=== PATIENT | male | born 1980 | race Caucasian/White ===

== ENCOUNTER 2022-05-30 09:41 | Emergency (ER) | payer OTHER, SELFPAY ==
--- NOTE | ~2022-05-30 | XR_ITS ---
EXAMINATION: XR CHEST CLINICAL INFORMATION: Chest pain COMPARISON: None TECHNIQUE: 2 views of the chest were obtained. FINDINGS: No significant abnormality is noted involving the heart, lungs, mediastinum, bony thorax or soft tissues. XR/XR chest 2V IMPRESSION: Unremarkable chest examination.
[2022-05-30 09:44] VITALS: BP 141/72; PULSE 82; RESP 16; TEMP 36.7; O2SAT 99; BMI 28.5
--- NOTE | 2022-05-30 09:45 | ECG_ITS ---
Test Reason : CHEST PAIN Blood Pressure : / mmHG Vent. Rate : 078 BPM Atrial Rate : 078 BPM P-R Int : 164 ms QRS Dur : 088 ms QT Int : 366 ms P-R-T Axes : 057 039 041 degrees QTc Int : 417 ms Normal sinus rhythm with sinus arrhythmia Nonspecific ST abnormality Inferior leads Borderline ECG No previous ECGs available Referred By: Generic ED Physician Electronically Signed By:RAFY DIAZ MD
--- NOTE | 2022-05-30 09:52 | ED_ITS ---
HPI - Chest Pain General Chief Complaint: Chest Pain Stated Complaint: r sided chest pain and r shoulder blade Time Seen by Provider: 05/30/22 09:52 Source: patient Mode of arrival: ambulatory Limitations: no limitations History of Present Illness HPI narrative: Pt is a 41 yo assigned male at w/ no significant PMHx presenting w/ a 3 wk hx of intermittent chest pain and SOB. He states that his symptoms starting spontaneously w/o known inciting event. He describes the pain as dull that comes on w/o any specific triggers. He states that the pain is located in the epigastric region, stating that he's concerned that he may have an ulcer. He describes the pain as dull that comes on w/o any specific triggers. He denies any hx of similar symptoms in the past. He denies any recent fevers, cough, sore throat, N/V/D, headache, lightheadedness, or syncopal episodes. Onset (ago): week(s) (3) Timing of current episode: episodic Prior episodes: No Onset: awoke with symptoms Pain location: epigastric Pain radiation: none Severity: mild Pain scale (0-10): 2 Quality: dull Relieving factors: nothing Exacerbating factors: nothing Treatment prior to arrival: none Risk Factors Coronary artery disease risk factors: none Related Data Allergies Allergy/AdvReac Type Severity Reaction Status Date / Time No Known Allergies Allergy Verified 05/30/22 09:58 Review of Systems Constitutional: Constitutional: Reports no additional constitutional complaints, Denies chills, Denies fever(s) and Denies night sweats Eyes: Eyes: Reports no additional eye complaints and Denies change in vision ENT: Denies dizziness Cardiovascular: Cardiovascular: Reports no additional cardiovascular complaints, Denies chest pain, Denies lightheadedness, Denies Loss of Consciousness and Denies dyspnea Respiratory: Respiratory: Reports no additional respiratory complaints and Denies dyspnea Gastrointestinal: Gastrointestinal: Reports no additional gastrointestinal complaints, Reports abdominal pain (epigastric pain) and Denies change in stool character Genitourinary: Genitourinary: Reports no additional male genitourinary complai nts Musculoskeletal: Musculoskeletal: Reports no additional musculoskeletal complaints Neurologic: Denies dizziness Psychiatric: Psychiatric: Reports no additional psychiatric complaints Endocrine: Endocrine: Reports no additional endocrine complaints Hematologic/Lymphatic: Hematologic/Lymphatic: Reports no additional hematologic/lymphatic complaints Allergic/Immunologic: Allergic/Immunologic: Reports no additional allergic/immunologic complaints and Denies GI upset with certain foods PMFSH Past Medical History Attestation statement: The following information was validated with the patient. Source: old records reviewed Social History Social History Advance Directives: No Advance Directives Information Provided: Yes Physical Exam Vital Signs: Vital Signs: Last Vital Signs Temp 99.4 F 05/30/22 11:44 Pulse 69 05/30/22 11:44 Resp 14 05/30/22 11:44 BP 121/80 05/30/22 11:44 Pulse Ox 100 05/30/22 11:44 O2 Del Method 05/30/22 11:44 BMI result Body Mass Index 28.5 Const: General: cooperative, healthy appearing, comfortable and no acute distress Nutritional Appearance: well nourished and overweight Orientation/consciousness: patient oriented x3 Limitations: no limitations HEENT: Head: Yes normal to inspection and Yes atraumatic Ears: hearing grossly normal bilaterally General nose exam: Normal external nose present, no nasal discharge noted and no epistaxis Face and sinus: Yes normal facial exam, No abrasion and No laceration Mouth: Normal oral and palatal mucosa present, no drooling and no muffled voice Eyes: General: appearance normal, both eyes and all related structures Periorbital: periorbital findings normal Eyelids: Yes eyelids normal Conjunctivae: conjunctivae normal Pupils: Equal, round and reactive pupils present EOM: EOMs intact bilaterally Neck: Neck: Yes normal visual inspection Lymphatic: no lymphadenopathy noted Chest: Chest palpation & inspection: normal inspection of the chest Resp: Effort & Inspection: normal respiratory effort, able to speak in complete sentences, no cough, no respiratory distress and not tachypneic Auscultation: clear to auscultation bilaterally, no crackles, no rales, no rhonchi and no wheezes Cardio: Jugular venous distension: no JVD Rate: regular rate Rhythm: regular rhythm Heart sounds: S1 normal heart sound present and S2 normal heart sound present Peripheral pulses: Peripheral pulses 2+ throughout GI: Inspection: Yes normal to inspection Palpation (GI): Soft to palpation, not firm, nontender, no guarding, not rigid, no masses, No Ascites present and No Rebound tenderness present Auscultation: normal bowel sounds Skin: General skin exam: no rashes or lesions noted Neuro: General: patient oriented x3 Cranial nerves: Yes Equal, round and reactive pupils present Cognition (Neuro): normal cognition Motor exam (neuro): 5/5 motor strength present throughout Sensory Exam: Normal double simultaneous stimulation for sensation Coordination: [id number] test normal Extrem: General: Yes normal to inspection, Yes full ROM and Yes capillary refill normal Psych: Appearance: grossly normal Mental Status: mental status grossly normal Affect: normal affect Attitude: cooperative Thought process: Normal thought process present Thought content: Normal thought content present Insight: Good insight present (Psych) Medications Administered Discontinued Medications Generic Name Dose Route Start Last Admin Trade Name Freq PRN Reason Stop Dose Admin Sodium Chloride 1,000 mls @ 999 mls/hr 05/30/22 11:30 05/30/22 11:53 Ns IV 05/30/22 12:30 999 mls/hr .Q1H1M ROBB Administration MDM - Chest Pain MDM Narrative Medical decision making narrative: Patient is a 41 year old assigned male at with no reported medical history presenting to the emergency department today with epigastric pain. Patient's physical exam was unremarkable. Patient's blood work showed a very slight lipase elevation but was otherwise unremarkable. Patient's EKG was unremarkable. Patient's chest x-ray showed no acute process. I explained my physical exam findings as well as all test results to the patient. I answered all questions asked by the patient. Patient received IV fluids which he stated helped his symptoms significantly. I stressed the importance of the patient taking his medication as prescribed. I stressed the importance of the patient following up with his primary care provider. I stressed the importance of the patient returning to the emergency department immediately if his symptoms were to worsen or if he were to develop any dizziness, shortness of breath, difficulty breathing, chest pain, blurry vision, loss of vision, nausea, vomiting, abdominal pain, fever, chills, back pain, or any other complaints. Patient verbalized agreement and understanding with this treatment plan and discharge. Medical Records Data Attestation: I reviewed the patient's medical records. Lab Data Attestation: I reviewed the patient's lab results. Result diagrams: 05/30/22 10:59 05/30/22 10:59 Labs: Lab Results 05/30/22 05/30/22 05/30/22 Range/Units 10:59 10:59 10:59 WBC 3.1 L (4.8-10.8) X10*3/uL RBC 4.81 (4.60-5.80) X10*6/uL Hgb 15.3 (14.0-18.0) g/dl Hct 44.0 (42.0-52.0) % MCV 91.5 (80.0-98.0) fL MCH 31.8 (27.0-33.0) pg MCHC 34.8 (31.0-36.0) g/dl RDW 11.5 (11.0-16.0) % Plt Count 235 (160-400) X10*3/uL MPV 9.6 (9.4-12.4) fL Immature Gran % (Auto) 0.3 (0.0-0.4) % Neut % (Auto) 63.3 (45-73) % Lymph % (Auto) 24.9 (20-40) % [place] % (Auto) 9.8 (2-11) % Eos % (Auto) 1.0 (0-4) % Baso % (Auto) 0.7 (0-2) % Lymph # (Auto) 0.8 L (1.2-4.9) X10*3/uL [place] # (Auto) 0.3 (0.1-1.2) X10*3/uL Eos # (Auto) 0.0 (0.0-0.4) X10*3/uL Baso # (Auto) 0.0 (0.0-0.2) X10*3/uL Abs Immat Gran (auto) 0.01 (0.00-0.03) X10*3/uL Absolute Neuts (auto) 1.9 L (2.0-8.3) x10*3/uL Absolute Nucleated RBC 0.000 (0.0-0.012) X10*3/uL Nucleated RBC % (auto) 0.0 (0.0-0.2) /100WBC D-Dimer High Sensitivty < 150 NG/ML Sodium 138 (135-145) mmol/L Potassium 4.2 (3.3-5.1) mmol/L Chloride 102 (96-108) mmol/L Carbon Dioxide 28 (22-29) mmol/L Anion Gap 12 (12-20) BUN 11 (9-16) mg/dL Creatinine 0.98 (0.5-1.4) mg/dL Estim Creat Clear Calc 121.1 Estimated GFR > 60 Random Glucose 102 (60-115) mg/dL Calcium 9.3 (8.4-10.2) mg/dL Magnesium 2.2 (1.6-2.6) mg/dL Total Bilirubin 0.5 (0.0-1.0) mg/dL AST 22 (5-37) U/L ALT 47 H (0-40) U/L Alkaline Phosphatase 55 (39-117) U/L Troponin I High Sens (<3.5-35.0) ng/L B-Natriuretic Peptide (<100) pg/mL Total Protein 7.0 (6.5-8.0) g/dL Albumin 4.4 (3.5-5.0) g/dL Lipase 89 H (8-78) U/L Influenza Type A (PCR) (Negative) Influenza Type B (PCR) (Negative) RSV RNA Qual (PCR) (Negative) SARS-CoV-2 RNA (RT-PCR) (Negative) 05/30/22 05/30/22 05/30/22 Range/Units 10:59 10:59 11:48 WBC (4.8-10.8) X10*3/uL RBC (4.60-5.80) X10*6/uL Hgb (14.0-18.0) g/dl Hct (42.0-52.0) % MCV (80.0-98.0) fL MCH (27.0-33.0) pg MCHC (31.0-36.0) g/dl RDW (11.0-16.0) % Plt Count (160-400) X10*3/uL MPV (9.4-12.4) fL Immature Gran % (Auto) (0.0-0.4) % Neut % (Auto) (45-73) % Lymph % (Auto) (20-40) % [place] % (Auto) (2-11) % Eos % (Auto) (0-4) % Baso % (Auto) (0-2) % Lymph # (Auto) (1.2-4.9) X10*3/uL [place] # (Auto) (0.1-1.2) X10*3/uL Eos # (Auto) (0.0-0.4) X10*3/uL Baso # (Auto) (0.0-0.2) X10*3/uL Abs Immat Gran (auto) (0.00-0.03) X10*3/uL Absolute Neuts (auto) (2.0-8.3) x10*3/uL Absolute Nucleated RBC (0.0-0.012) X10*3/uL Nucleated RBC % (auto) (0.0-0.2) /100WBC D-Dimer High Sensitivty NG/ML Sodium (135-145) mmol/L Potassium (3.3-5.1) mmol/L Chloride (96-108) mmol/L Carbon Dioxide (22-29) mmol/L Anion Gap (12-20) BUN (9-16) mg/dL Creatinine (0.5-1.4) mg/dL Estim Creat Clear Calc Estimated GFR Random Glucose (60-115) mg/dL Calcium (8.4-10.2) mg/dL Magnesium (1.6-2.6) mg/dL Total Bilirubin (0.0-1.0) mg/dL AST (5-37) U/L ALT (0-40) U/L Alkaline Phosphatase (39-117) U/L Troponin I High Sens < 3.5 (<3.5-35.0) ng/L B-Natriuretic Peptide 41 (<100) pg/mL Total Protein (6.5-8.0) g/dL Albumin (3.5-5.0) g/dL Lipase (8-78) U/L Influenza Type A (PCR) NEGATIVE (Negative) Influenza Type B (PCR) NEGATIVE (Negative) RSV RNA Qual (PCR) NEGATIVE (Negative) SARS-CoV-2 RNA (RT-PCR) NEGATIVE (Negative) Imaging Data Chest x-ray: Attestation: I personally reviewed and interpreted this imaging study as follows: My impression: No acute process. Radiologist's impression: EXAMINATION: XR CHEST CLINICAL INFORMATION: Chest pain COMPARISON: None TECHNIQUE: 2 views of the chest were obtained. FINDINGS: No significant abnormality is noted involving the heart, lungs, mediastinum, bony thorax or soft tissues. XR/XR chest 2V IMPRESSION: Unremarkable chest examination. Dictated By: Rober Price MD Signed By: Electronically signed by Rober Price MD 05/30/22 1156 ECG Data ECG #1: Attestation: I personally reviewed and interpreted this ECG as follows: ECG interpretation date: 05/30/22 ECG interpretation time: 09:57 Prior ECG tracings: available for review Interpretation: Vent. Rate: 078 BPM ? ? Atrial Rate: 078 BPM P-R Int: 164 ms? QRS Dur: 088 ms QT Int: 366 ms ? ? ? P-R-T Axes: 057 039 041 degrees QTc Int: 417 ms ? Normal sinus rhythm with sinus arrhythmia Normal ECG No previous ECGs available DD/ 6 Discharge Plan Discharge Clinical Impression: Elevated lipase, Chest pain Patient Disposition: Home, Self-Care Instructions: Chest Pain (DC) Additional Instructions: Follow up with your primary care provider. Return to the emergency department immediately if your symptoms worsen or if you develop any dizziness, shortness of breath, difficulty breathing, chest pain, blurry vision, loss of vision, nausea, vomiting, abdominal pain, fever, chills, back pain, or any other complaints. Referrals: Sukumar Du, PRESS[employer] [Primary Care Provider] - Stand Alone Forms: Work/School Release Interventions: ED Discharge Assessment Last Done: 05/30/22 13:40 Discharge Date/Time: 05/30/22 13:45 Print Language: Yoruba
[2022-05-30 11:06] LABS: Basophils Percent Auto 0.7 % (0-2); Hemoglobin 15.3 g/dl (14.0-18.0); Imm Gran Abs Auto 0.01 X10*3/uL (0.00-0.03); Imm Gran Pct Auto 0.3 % (0.0-0.4); Lymphocytes Absolute Auto 0.8 X10*3/uL (1.2-4.9); Lymphocytes Percent Auto 24.9 % (20-40); MANUAL DIFF FLAG NO; Mean Corpuscular HGB Conc 34.8 g/dl (31.0-36.0); Mean Corpuscular Hemoglobin 31.8 pg (27.0-33.0); Mean Corpuscular Volume 91.5 fL (80.0-98.0); Mean Platelet Volume 9.6 fL (9.4-12.4); Monocytes Absolute Auto 0.3 X10*3/uL (0.1-1.2); Monocytes Percent Auto 9.8 % (2-11); Neutrophils Absolute Auto 1.9 x10*3/uL (2.0-8.3); Neutrophils Percent Auto 63.3 % (45-73); Platelet Count 235 X10*3/uL (160-400); Red Blood Count 4.81 X10*6/uL (4.60-5.80); Red Cell Distribution Width 11.5 % (11.0-16.0); White Blood Count 3.1 X10*3/uL (4.8-10.8)
[2022-05-30 11:21] LABS: D Dimer High Sensitivity < 150 NG/ML
[2022-05-30 11:25] LABS: Alanine Aminotransferase 47 U/L (0-40); Albumin Level 4.4 g/dL (3.5-5.0); Alkaline Phosphatase 55 U/L (39-117); Anion Gap 12 (12-20); Aspartate Amino Transferase 22 U/L (5-37); Bilirubin Total 0.5 mg/dL (0.0-1.0); Blood Urea Nitrogen 11 mg/dL (9-16); Calcium 9.3 mg/dL (8.4-10.2); Carbon Dioxide 28 mmol/L (22-29); Chloride 102 mmol/L (96-108); Creatinine Clr Calc Pharmacy 121.1; Estimated Glomerular Filt Rate > 60; Glucose Random 102 mg/dL (60-115); Lipase 89 U/L (8-78); Magnesium 2.2 mg/dL (1.6-2.6); Potassium 4.2 mmol/L (3.3-5.1); Sodium 138 mmol/L (135-145)
[2022-05-30 11:27] LABS: B Type Natriuretic Peptide 41 pg/mL (<100)
[2022-05-30 11:28] LABS: Troponin-I High Sensitivity < 3.5 ng/L (<3.5-35.0)
[2022-05-30 11:44] VITALS: BP 121/80; PULSE 69; RESP 14; TEMP 37.4; O2SAT 100
[2022-05-30] MEDS: 0.9 % Sodium Chloride 1,000 ML 999 ML IV (11:53)
[2022-05-30 13:11] LABS: Influenza A PCR NEGATIVE (Negative); Influenza B PCR NEGATIVE (Negative); Resp Syncy Virus RNA Qual PCR NEGATIVE (Negative); SARS COV2 PCR INHOUSE NEGATIVE (Negative)
== END 2022-05-30 13:45 | disposition home or self-care (01) ==
PROVIDERS: Physician Assistant Medical; Emergency Provider Emergency Medicine; PCP Nurse Practitioner Family
DX: R07.9 Chest pain, unspecified (principal); R74.8 Abnormal levels of other serum enzymes; Z20.822 Contact with and (suspected) exposure to COVID-19
CPT/HCPCS: 0241U; 36415; 71046; 80053; 83690; 83735; 83880; 84484; 85025; 85379; 93005; 99283; 99284

== ENCOUNTER 2023-06-01 07:58 | Outpatient (REF) | payer OTHER, SELFPAY ==
[2023-06-01 11:15] LABS: Appearance Urine Cloudy; Color Urine Yellow; Glucose Urine UA Negative (Negative); Leukocyte Esterase Urine Negative (Negative); Nitrite Urine Negative (Negative); Urine Blood Negative (Negative); Urine Ketones Negative (Negative); Urine Protein Negative (Neg-Trace)
[2023-06-01 11:17] LABS: MANUAL DIFF FLAG NO
[2023-06-01 11:26] LABS: Basophils Percent Auto 0.5 % (0-2); Eosinophils Absolute Auto 0.1 X10*3/uL (0.0-0.4); Eosinophils Percent Auto 2.2 % (0-4); Hematocrit 43.9 % (42.0-52.0); Hemoglobin 14.8 g/dl (14.0-18.0); Lymphocytes Absolute Auto 1.3 X10*3/uL (1.2-4.9); Lymphocytes Percent Auto 34.6 % (20-40); Mean Corpuscular HGB Conc 33.7 g/dl (31.0-36.0); Mean Corpuscular Hemoglobin 31.7 pg (27.0-33.0); Mean Platelet Volume 10.3 fL (9.4-12.4); Monocytes Absolute Auto 0.3 X10*3/uL (0.1-1.2); Monocytes Percent Auto 9.1 % (2-11); Neutrophils Percent Auto 53.6 % (45-73); Platelet Count 238 X10*3/uL (160-400); Red Blood Count 4.67 X10*6/uL (4.60-5.80); White Blood Count 3.6 X10*3/uL (4.8-10.8)
[2023-06-01 12:14] LABS: Alanine Aminotransferase 44 U/L (0-40); Albumin Level 4.7 g/dL (3.5-5.0); Alkaline Phosphatase 53 U/L (39-117); Anion Gap 9 (12-20); Aspartate Amino Transferase 21 U/L (5-37); Bilirubin Total 0.3 mg/dL (0.0-1.0); Blood Urea Nitrogen 14 mg/dL (9-16); Calcium 9.1 mg/dL (8.4-10.2); Carbon Dioxide 29 mmol/L (22-29); Chloride 104 mmol/L (96-108); Cholesterol 251 mg/dL (<200); Estimated Glomerular Filt Rate > 60; Glucose Fasting 95 mg/dL (60-99); HDL Cholesterol 44 mg/dL (>40); LDL Cholesterol Calculated 160 mg/dL (<100); Lipase 19 U/L (8-78); Potassium 4.1 mmol/L (3.3-5.1); Sodium 138 mmol/L (135-145); TSH reflex Free T4 1.11 uIU/mL (0.32-4.0); Total Protein 7.6 g/dL (6.5-8.0); Triglycerides 238 mg/dL (<150)
== END 2023-06-01 07:59 | disposition home or self-care (01) ==
LOC: HO.HMGCLDS 07:58
PROVIDERS: PCP Nurse Practitioner Family; Visit Provider Nurse Practitioner Family
DX: Z00.00 Encounter for general adult medical examination without abnormal findings (principal); R74.8 Abnormal levels of other serum enzymes
CPT/HCPCS: 36415; 80053; 80061; 81003; 83690; 84443; 85025

== ENCOUNTER → 2023-06-23 08:20 | Outpatient (BNV) | payer OTHER, SELFPAY | PROVIDERS: PCP Nurse Practitioner Family; Visit Provider Internal Medicine | DX: D72.819 Decreased white blood cell count, unspecified (principal) | CPT/HCPCS: 99204; 99213 ==

== ENCOUNTER 2023-09-08 08:36 | Outpatient (AMB) | payer OTHER, SELFPAY ==
--- NOTE | 2023-09-08 08:42 | MHC.PC.OV ---
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 1. Little interest or pleasure in doing things: not at all 2. Feeling down, depressed, or hopeless: not at all 3. Trouble falling or staying asleep, or sleeping too much: several days 4. Feeling tired or having little energy: several days 5. Poor appetite or overeating: not at all 6. Feeling bad about yourself - or that you are a failure or have let yourself or your family down: not at all 7. Trouble concentrating on things, such as reading the newspaper or watching television: not at all 8. Moving or speaking so slowly that other people could have noticed. Or the opposite - being so fidgety or restless that you have been moving around a lot more than usual: not at all 9. Thoughts that you would be better off or of hurting yourself in some way: not at all Total score: 2 Depression Screening Interpretation: Negative Depression Screening Done: Yes 73541 - PHQ-9 Billing: Yes Source: Developed by Drs. Marc Rudd, Rukhsana Perez, Kavon Erickson and colleagues, with an educational roger from [employer]. Thrive Questionnaire Date Thrive assessed: 09/08/23 I am a: Patient What is your living situation today?: I have a steady place to live Within the past 12 months, did the food you bought not last and you didn't have the money to get more?: Never true Within the past 12 months, did you worry whether your food would run out before you got money to buy more?: Never true Do you have trouble paying for medicines?: No Do you have trouble getting transportation to medical appointments?: No Do you have trouble paying your heating and electricity bill?: No Do you have trouble taking care of your child, family member or friend?: No Do you have trouble with day-to-day activities such as bathing, preparing meals, shopping, managing finances, etc.?: No Are you currently unemployed and looking for a job?: No Are you interested in more education?: No Please select the resources that you would like help with: None Currently or been in a relationship where the following occur: no concerns reported THRIVE Score: 0 AUDIT C Alcohol Use Questionnaire (AUDIT-C) 1. How often do you have a drink containing alcohol?: 2-3 times a week 2. How many drinks containing alcohol do you have on a typical day when you are drinking?: 3 or 4 3. How often do you have six or more drinks on one occasion?: Less than monthly Total Score: 5 Score Reviewed/Action Taken: Yes TYLER-7 AMB Questionnaire TYLER-7 Date TYLER - 7 assessed: 09/08/23 Feeling nervous, anxious, or on edge: 0 = Not at all Not being able to stop or control worryin = Not at all Worrying too much about different things: 0 = Not at all Trouble relaxin = Several days Being so restless that it is hard to sit still: 0 = Not at all Becoming easily annoyed or irritable: 1 = Several days Feeling afraid as if something awful might happen: 0 = Not at all Total TYLER-7 score (0-4 normal; 5-9 mild; 10-14 moderate; 15-21 severe): 2 Source: Developed by Drs. Marc Rudd, Rukhsana Perez, Kavon Erickson and colleagues, with an educational roger from [employer]. TYLER-7 Assessment Billing TYLER-7 Assessment Tool: TYLER-7 Assessment 32166 Review of Systems Const Denies chills and Denies fever(s) Eyes Denies blurry vision ENT Denies vertigo, Denies dizziness and Denies sore throat Card Denies chest pain at rest, Denies chest pain with activity, Denies diaphoresis, Denies dyspnea and Denies dyspnea on exertion Resp Denies cough, Denies dyspnea, Denies dyspnea on exertion and Denies wheezing GI Denies abdominal pain, Denies melena, Denies hematochezia, Denies constipation, Denies diarrhea and Denies loose stools Denies hematuria Musc Denies numbness and Denies tingling Skin/Breast Denies lesions Neuro Denies vertigo, Denies dizziness, Denies numbness and Denies tingling Psych Denies anxiety, Denies depression, Denies homicidal ideation, Denies suicidal ideation and Denies other (substance abuse) Aller/Immun Denies wheezing Physical exam (Primary Care) Vital Signs: Last Vital Signs Pulse 82 09/08/23 08:43 BP 120/70 09/08/23 08:43 Pulse Ox 96 09/08/23 08:43 Oxygen Delivery Method Room Air 09/08/23 08:43 BMI result Body Mass Index 29.4 Tobacco/Smoking Status: Tobacco use Status Tobacco use date assessed 09/08/23 09/08/23 08:44 Patient Tobacco Use Status Never used Tobacco 09/08/23 08:44 e-Cigarette/Vaping Use Never Used 09/08/23 08:44 PHQ-9: PHQ-9 Score PHQ-9: Total score 2 09/08/23 08:52 Depression Screening Interpretation: Negative Thrive Assessment: Date of Thrive Assessment Date Thrive assessed 03/06/24 03/06/24 08:52 Currently or been in a relationship where the following occur: no concerns reported Const General: cooperative Nutritional Appearance: well nourished Orientation/consciousness: patient oriented x3 HENMT Head: Yes normal to inspection, Yes normocephalic and Yes atraumatic Ears: TM normal on the right and TM normal on the left Eyes General: appearance normal, both eyes and all related structures Alignment and Position: alignment normal and position normal Neck Neck: Yes normal visual inspection and Yes no lymphadenopathy Resp Effort & Inspection: normal respiratory effort Auscultation: clear to auscultation bilaterally Cardio Rate: regular rate Rhythm: regular rhythm Heart sounds: S1 normal heart sound present, S2 normal heart sound present and no murmurs GI Palpation (GI): Soft to palpation and nontender Auscultation: normal bowel sounds Male General Exam: Yes normal external exam Penis: normal penis Scrotum: scrotum normal, testes descended bilaterally and no inguinal hernias Testes: no testicular mass Skin Rashes: no rashes Neuro General: patient oriented x3, moves all extremities, no focal motor deficits and deep tendon reflexes 2+ bilaterally Romberg Test: Negative Extrem Right lower extremity: no edema Left lower extremity: no edema Psych Affect: normal affect Attitude: cooperative Thought process: Normal thought process present Assessment and Plan Assessment & Plan (1) Physical exam: Code(s): Z.00 - Encounter for general adult medical examination without abnormal findings Orders: Orders Complete Blood Count Auto Diff Today Z00.00 - Encounter for general adult medical examination without abnormal findings Comprehensive [place]. Panel Fast Today Z00.00 - Encounter for general adult medical examination without abnormal findings TSH reflex Free T4 Today Z00.00 - Encounter for general adult medical examination without abnormal findings UA CC w/rflx Micro + Cult Today Z00.00 - Encounter for general adult medical examination without abnormal findings Lipid Panel Today Z00.00 - Encounter for general adult medical examination without abnormal findings Coding Level of Care Code Est Pt Prev Care 40-64y(63474) Diagnoses Physical exam Z00. Additional Codes TYLER-7 Assessment Billing - TYLER-7 Assessment Tool: TYLER-7 Assessment [id number] ([id number])
[2023-09-08 08:43] VITALS: BP 120/70; PULSE 82; O2SAT 96; BMI 29.4
== END 2023-09-08 09:55 | disposition home or self-care (01) ==
PROVIDERS: Visit Provider Nurse Practitioner Family
DX: Z00.00 Encounter for general adult medical examination without abnormal findings (principal)
CPT/HCPCS: 99396

== ENCOUNTER 2024-10-09 10:10 | Outpatient (AMB) | payer OTHER, SELFPAY ==
[2024-10-09 10:14] VITALS: BP 136/80; PULSE 93; O2SAT 98; BMI 27.1
--- NOTE | 2024-10-09 10:14 | MHC.PC.OV ---
Vital Signs 10/09/24 10:14 Height 6 ft Weight 200 lb BMI 27.1 BP 136/80 Blood Pressure Location Lt brachial Position Sitting Pulse 93 Pulse Source Pulse Oximeter Pulse Oximetry (%) 98 Oxygen Delivery Method Room Air Intake Visit Reasons: PE Intake Note: pt is here for PE Digital Marketing Intern Required: No Accompanied by: Self / Same As Patient Allergies No Known Allergies Allergy (Verified 10/09/24 10:35) Medication List - Last Reconciled 10/09/24 by NESS Hendrickson famotidine (Pepcid AC) 20 mg PO DAILY PRN Tobacco use date assessed: 10/09/24 Dental Screening Dental Screen Date: 10/09/24 Did you have a dental visit in the last 12 months?: Yes Did you have a dental problem in the last 6 months where you did not have access to dental care?: No Was dental information given to patient?: Patient has dentist HPI PE HPI Details History of Present Illness The patient is a 44-year-old male presenting for a wellness examination. He reported doing well overall and did not express any new or ongoing health concerns. He specifically denied any chest pain, shortness of breath, or abdominal issues. There was no report of blood in stool, constipation, diarrhea, urinary problems, or mental health concerns such as suicidal ideation. Overall, his health status appears to be stable with no new symptoms noted during this visit. Health Maintenance - Lab orders have been entered for preventative screening purposes. Social History Review of Systems - Cardiovascular: Denies chest pain or discomfort. - Respiratory: Denies shortness of breath. - Gastrointestinal: Denies abdominal pain, blood in stool, constipation, or diarrhea. - Genitourinary: Denies urinary issues. - Psychiatric: Denies suicidal thoughts or feelings. Physical Exam General: Cooperative, healthy appearing, comfortable, no acute distress and well developed Orientation: Patient oriented x3 Limitations: No limitations Head: Normal to inspection Ears: Hearing grossly normal bilaterally Nose: Normal external nose present Face and sinus: Normal facial exam Eyes: Appearance normal, both eyes and all related structures Neck: Normal visual inspection and Yes full ROM Respiratory: Normal respiratory effort and able to speak in complete sentences. Clear to auscultation bilaterally Cardiovascular: Regular rate and rhythm. Normal S1 and S2 GI: Normal to inspection. Soft to palpation and nontender Skin: No rashes or lesions noted Neuro: Patient oriented x3 Extremities: Normal to inspection Results - Labs: Orders have been entered for routine preventative screening tests. Plan In this wellness visit, no particular medical problems were identified, and the patient expressed no concerns. Preventative screening labs have been ordered. No additional intervention is required at this time, and ongoing management will focus on continued health maintenance. Discussion Notes I discussed with the patient the current status of his wellness examination, confirming that he had no new or significant concerns. We talked about the importance of maintaining health through regular check-ups and screening, as well as the necessity of routine lab work to monitor for any underlying conditions. The patient agreed and understood the necessity for these screenings, and consent was provided for the lab tests ordered today. Patient Instructions - Complete lab tests as ordered for routine screening. - Maintain current health and wellness practices. - Follow up with healthcare provider for regular wellness check-ups. 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 1. Little interest or pleasure in doing things: not at all 2. Feeling down, depressed, or hopeless: not at all 3. Trouble falling or staying asleep, or sleeping too much: not at all 4. Feeling tired or having little energy: several days 5. Poor appetite or overeating: not at all 6. Feeling bad about yourself - or that you are a failure or have let yourself or your family down: not at all 7. Trouble concentrating on things, such as reading the newspaper or watching television: several days 8. Moving or speaking so slowly that other people could have noticed. Or the opposite - being so fidgety or restless that you have been moving around a lot more than usual: not at all 9. Thoughts that you would be better off or of hurting yourself in some way: not at all Total score: 2 Depression Screening Interpretation: Negative Depression Screening Done: Yes 48695 - PHQ-9 Billing: Yes Source: Developed by Drs. Marc Rudd, Rukhsana Perez, Kavon Erickson and colleagues, with an educational roger from [employer]. Thrive Questionnaire Date Thrive assessed: 10/09/24 I am a: Patient What is your living situation today?: I have a steady place to live Within the past 12 months, did the food you bought not last and you didn't have the money to get more?: Never true Within the past 12 months, did you worry whether your food would run out before you got money to buy more?: Never true Do you have trouble paying for medicines?: No Do you have trouble getting transportation to medical appointments?: No Do you have trouble paying your heating and electricity bill?: No Do you have trouble taking care of your child, family member or friend?: No Do you have trouble with day-to-day activities such as bathing, preparing meals, shopping, managing finances, etc.?: No Are you currently unemployed and looking for a job?: No Are you interested in more education?: No Please select the resources that you would like help with: None Currently or been in a relationship where the following occur: No concerns reported THRIVE Score: 0 AUDIT C Alcohol Use Questionnaire (AUDIT-C) 1. How often do you have a drink containing alcohol?: 2-3 times a week 2. How many drinks containing alcohol do you have on a typical day when you are drinking?: 3 or 4 3. How often do you have six or more drinks on one occasion?: Less than monthly Total Score: 5 Score Reviewed/Action Taken: Yes TYLER-7 AMB Questionnaire TYLER-7 Date TYLER - 7 assessed: 10/09/24 Feeling nervous, anxious, or on edge: 0 = Not at all Not being able to stop or control worryin = Not at all Worrying too much about different things: 0 = Not at all Trouble relaxin = Several days Being so restless that it is hard to sit still: 0 = Not at all Becoming easily annoyed or irritable: 0 = Not at all Feeling afraid as if something awful might happen: 0 = Not at all Total TYLER-7 score (0-4 normal; 5-9 mild; 10-14 moderate; 15-21 severe): 1 Source: Developed by Drs. Marc Rudd, Rukhsana Perez, Kavon Erickson and colleagues, with an educational roger from [employer]. TYLER-7 Assessment Billing TYLER-7 Assessment Tool: TYLER-7 Assessment 93908 Physical exam (Primary Care) Vital Signs: Last Vital Signs Pulse 93 10/09/24 10:14 BP 136/80 10/09/24 10:14 Pulse Ox 98 10/09/24 10:14 Oxygen Delivery Method Room Air 10/09/24 10:14 BMI result Body Mass Index 27.1 Tobacco/Smoking Status: Tobacco use Status Tobacco use date assessed 10/09/24 10/09/24 10:16 Patient Tobacco Use Status Never used Tobacco 10/09/24 10:16 e-Cigarette/Vaping Use Never Used 10/09/24 10:16 PHQ-9: PHQ-9 Score PHQ-9: Total score 2 10/09/24 10:16 Depression Screening Interpretation: Negative Thrive Assessment: Date of Thrive Assessment Date Thrive assessed 10/09/24 10/09/24 10:16 Currently or been in a relationship where the following occur: No concerns reported Coding Level of Care Code Est Pt Prev Care 40-64y(95009) Diagnoses Physical exam Z00. Additional Codes TYLER-7 Assessment Billing - TYLER-7 Assessment Tool: TYLER-7 Assessment 44667 ([id number]) PHQ-9 - 85356 - PHQ-9 Billing: Yes ([id number]) Assessment & Plan Assessment & Plan (1) Physical exam: Code(s): Z00.00 - Encounter for general adult medical examination without abnormal findings Category: Medical Plan . Orders: Orders Complete Blood Count Auto Diff Today Z00.00 - Encounter for general adult medical examination without abnormal findings Comprehensive Arnett. Panel Fast Today Z00.00 - Encounter for general adult medical examination without abnormal findings UA CC w/rflx Micro + Cult Today Z00.00 - Encounter for general adult medical examination without abnormal findings TSH reflex Free T4 Today Z00.00 - Encounter for general adult medical examination without abnormal findings Lipid Panel Today Z00.00 - Encounter for general adult medical examination without abnormal findings
--- OUTSIDE RECORDS SUMMARY | 2024-10-09 11:51 | XMS_ITS | Clinical Summary ---
Author Organization [facility] Address [address] [place] [address] Care Team Providers Care Business Office Assistant Name Role Phone Pcp, No Primary Care Provider Unavailabl e Allergies No known active allergies Medications Medication Sig Dispensed Refills Start Date End Date Status oxyCODONE-acetaminoph en (PERCOCET) 5-325 mg per tablet Take 1-2 tablets by mouth Every 4 (four) to 6 (six) hours as needed for severe pain. Max Daily Amount: 12 tablets 12 tablet 04/05/2019 Active methocarbamol (ROBAXIN) 750 MG tablet Take 1 tablet (750 mg total) by mouth 4 times daily (every 6 hours) as needed for muscle spasms. 20 tablet 04/05/2019 Active Immunizations Name Administration Dates Next Due Tdap 04/05/2019 Social History Tobacco Use Types Packs/Day Years Used Date Smoking Tobacco: Never Assessed Sex and Gender Information Value Date Recorded Sex Assigned at Not on file Gender Identity Not on file Sexual Orientation Not on file Last Filed Vital Signs Vital Sign Reading Time Taken Comments Blood Pressure 133/79 04/05/2019 4:48 PM EDT Pulse 101 04/05/2019 4:48 PM EDT Temperature 37.5 ??C (99.5 ??F) 04/05/2019 4:48 PM ED T Respiratory Rate 18 04/05/2019 4:48 PM EDT Oxygen Saturation 96% 04/05/2019 4:48 PM EDT Inhaled Oxygen Concentration - - Weight - - Height - - Body Mass Index - - Plan of Treatment Health Maintenance Due Date Last Done Comments Hepatitis C Virus Screening 1982 HIV Screening 09/17/1995 Hepatitis B Vaccines (1 of 3 - 19+ 3-dose series) 2001 Influenza Vaccine 02/03/2024 COVID-19 Vaccine (2023-2 5 season) 2024 DTaP/Tdap/Td Vaccines (2 - T d or Tdap) 04/05/2029 04/05/2019 HPV Vaccines Aged Out No longer eligi ble based on patient's age to complete this topic Pneumococcal Vaccine: Pediat milton (0-5 Years) and At-Risk Patients (6 to 49 Years) Aged Out No longer eligible b ased on patient's age to complete this topic Care Teams Business Office Assistant Relationship Specialty Start Date End Date Pcp, No PCP - General General Medicine 04/05/19
--- OUTSIDE RECORDS SUMMARY | 2024-10-09 11:51 | XMS_ITS ---
Author Name [facility] Organization Unknown Care Team Organization Name Specialty Phone Email Start Date End Da [facility] NO PCP Primary Care 08/16/2024
== END 2024-10-09 10:46 | disposition home or self-care (01) ==
LOC: HO.HMCC 10:10
PROVIDERS: PCP Nurse Practitioner Family; Visit Provider Nurse Practitioner Family
DX: Z00.00 Encounter for general adult medical examination without abnormal findings (principal)

== ENCOUNTER → 2024-10-09 10:10 | Outpatient (BNVA) | payer OTHER, SELFPAY | PROVIDERS: PCP Nurse Practitioner Family; Visit Provider Nurse Practitioner Family | DX: Z00.00 Encounter for general adult medical examination without abnormal findings (principal) | CPT/HCPCS: 96127 ==

== ENCOUNTER 2025-03-19 07:01 | Outpatient (REF) | payer OTHER, SELFPAY ==
--- OUTSIDE RECORDS SUMMARY | 2025-03-19 07:04 | XMS_ITS | Clinical Summary ---
Author Organization [facility] Address [address] [place] [address] Care Team Providers Care Business Mgr Name Role Phone Pcp, No Primary Care Provider Unavailabl e Allergies No known active allergies Medications oxyCODONE-aceta minophen (PERCOCET) 5-325 mg per tablet Take 1-2 tablets by mouth Every 4 (four) to 6 (six) hours as needed for severe pain. Max Daily Amount: 12 tablets 12 tablet 04/05/2019 Active methocarbamol (ROBAXIN) 750 MG tablet Take 1 tablet (750 mg total) by mouth 4 times daily (every 6 hours) as needed for muscle spasms. 20 tablet 04/05/2019 Active Immunizations Immunization Administration Dates Next Due Tdap 04/05/2019 Social History Tobacco Use Types Packs/Day Years Used Date Smoking Tobacco: Never Assessed Sex and Gender Information Value Date Recorded Sex Assigned at Not on file Legal Sex Male 10:54 AM EDT Gender Identity Not on file Sexual Orientation Not on file Last Filed Vital Signs Vital Sign Reading Time Taken Comments Blood Pressure 133/79 04/05/2019 4:48 PM EDT Pulse 101 04/05/2019 4:48 PM EDT Temperature 37.5 C (99.5 F) 04/05/2019 4:48 PM EDT Respiratory Rate 18 04/05/2019 4:48 PM EDT Oxygen Saturation 96% 04/05/2019 4:48 PM EDT Inhaled Oxygen Concentration - - Weight - - Height - - Body Mass Index - - Plan of Treatment Health Maintenance Due Date Last Done Comments Hepatitis C Virus Screening 1982 HIV Screening 09/17/1995 Hepatitis B Vaccines (1 of 3 - 19+ 3-dose series) 2001 HPV Vaccines (1 - 3-dose SCD M series) 2009 Influenza Vaccine 02/02/2025 COVID-19 Vaccine ( - 2023-2 5 season) 2025 DTaP/Tdap/Td Vaccines (2 - T d or Tdap) 04/05/2029 04/05/2019 Pneumococcal Vaccine: Pediat milton (0-5 Years) and At-Risk Patients (6 to 49 Years) Aged Out No longer eligible b ased on patient's age to complete this topic Insurance [facility] [place] [employer] Member Subscriber Plan / Payer (Ef fective 2019-Present) Name:Raul Briones Relation to Subscriber:Self Name:Raul Briones Payer ID:Not on file Group ID:Not on file Type:Not on file Address: [place] [id number] MEDICAID OUT OF STATE [facility] [place] Care Teams Business Mgr Relationship Specialty Start Date End Date Pcp, No PCP - General General Medicine 04/05/19
--- OUTSIDE RECORDS SUMMARY | 2025-03-19 07:04 | XMS_ITS ---
Author Name [facility] Organization Unknown Care Team Organization Name Specialty Phone Email Start Date End Da [facility] NO PCP Primary Care 08/16/2024
[2025-03-19 10:07] LABS: MANUAL DIFF FLAG NO
[2025-03-19 10:10] LABS: Hematocrit 41.7 % (42.0-52.0); Hemoglobin 14.1 g/dl (14.0-18.0); Imm Gran Abs Auto 0.02 X10*3/uL (0.00-0.03); Imm Gran Pct Auto 0.6 % (0.0-0.4); Lymphocytes Absolute Auto 0.9 X10*3/uL (1.2-4.9); Mean Corpuscular HGB Conc 33.8 g/dl (31.0-36.0); Mean Corpuscular Hemoglobin 31.5 pg (27.0-33.0); Mean Corpuscular Volume 93.1 fL (80.0-98.0); NRBC Abs Auto 0.000 X10*3/uL (0.0-0.012); NRBC Pct Auto 0.0 /100WBC (0.0-0.2); Platelet Count 236 X10*3/uL (160-400); Red Blood Count 4.48 X10*6/uL (4.60-5.80); White Blood Count 3.4 X10*3/uL (4.8-10.8)
[2025-03-19 10:13] LABS: Appearance Urine Clear; Glucose Urine UA Negative (Negative); PH 7.0 (5.0-9.0); Specific Gravity - Urine <= 1.005 (1.005-1.025)
[2025-03-19 10:36] LABS: Alanine Aminotransferase 37 U/L (0-40); Albumin Level 4.4 g/dL (3.5-5.0); Alkaline Phosphatase 54 U/L (39-117); Anion Gap 9 (12-20); Aspartate Amino Transferase 24 U/L (5-37); Blood Urea Nitrogen 14 mg/dL (9-16); Calcium 8.6 mg/dL (8.4-10.2); Carbon Dioxide 28 mmol/L (22-29); Chloride 106 mmol/L (96-108); Cholesterol 222 mg/dL (<200); Estimated Glomerular Filt Rate > 60; HDL Cholesterol 44 mg/dL (>40); Potassium 4.0 mmol/L (3.3-5.1); Sodium 139 mmol/L (135-145); Total Protein 6.7 g/dL (6.5-8.0); Triglycerides 119 mg/dL (<150)
== END 2025-03-19 07:02 | disposition home or self-care (01) ==
LOC: HO.HMGCLDS 07:01
PROVIDERS: PCP Nurse Practitioner Family; Visit Provider Nurse Practitioner Family
DX: Z00.00 Encounter for general adult medical examination without abnormal findings (principal); Z13.6 Encounter for screening for cardiovascular disorders; Z13.29 Encounter for screening for other suspected endocrine disorder
CPT/HCPCS: 36415; 80053; 80061; 81003; 84443; 85025

== ENCOUNTER 2025-04-03 15:25 | Outpatient (AMB) | payer OTHER, SELFPAY ==
[2025-04-03 16:00] VITALS: BP 104/72; PULSE 70; TEMP 36.7; O2SAT 98; BMI 29.0
--- NOTE | 2025-04-03 16:00 | AM.OFFWIN_ITS ---
Intake Vital Signs 04/03/25 16:00 Height 6 ft Weight 214 lb BMI 29.0 BP 104/72 Blood Pressure Location Rt brachial Position Sitting Pulse 70 Pulse Source Pulse Oximeter Temp 98.1 F Temp Source Oral Pulse Oximetry (%) 98 Oxygen Delivery Method Room Air Intake Visit Reasons: EP pain in lower left abdomen/ lower back Intake Note: pt presents with left lower abdomen pain and also left lower back pain. States pain is more prominent after large meals- s/s comes and goes approx. x1 mo Patient Tobacco Use Status: Never used Tobacco Allergies No Known Allergies Allergy (Verified 04/03/25 16:00) Do you need a note to return to daycare/school/sports/work: No HPI HPI Comments History of Present Illness Details History of Present Illness - The patient is a 44-year-old male pres enting with abdominal pain. - Has been having RLQ abdominal pain has been present for over a month, with episodes occurring after meals and lasting a few hours. - Pain is described as dull and located in the lower abdomen, sometimes radiating to the back and into the testicle. - No specific dietary triggers identifie d, though heavier meals may exacerbate symptoms. - No associated bowel movement changes, blood in stool, or urinary symptoms reported. - Testicular pain occurs occasionally, w ith no swelling or masses noted to the testicle. - He has no penile pain, discharge, rash es, hernias, painful erections or trouble getting an erection. - No family history of colon cancer, no smoking history, and no history of abdominal surgeries. - Previous labs showed high cholesterol, but otherwise normal results, including kidney function and liver function tests that he had done on 03/19. - He denies trauma or falls, fever, chil ls. CP, SOB, dysuria, hematuria, melena, diarrhea, constipation, or hematochezia. Physical Exam General: Cooperative, healthy appearing, comfortable, no acute distress and well developed Orientation: Patient oriented x3 Limitations: No limitations Respiratory: Normal respiratory effort and able to speak in complete sentences. Clear to auscultation bilaterally. No w/r/r noted. Cardiovascular: Regular rate and rhythm. Normal S1 and S2. No m/r/r noted. GI: Normal to inspection. Hypoactive BS noted. Soft to palpation and nontender, non distended. No guarding noted, no rebound tenderness noted, Negative rovsing noted. Neg CVA tenderness noted. No hernia or masses noted. No inguinal hernias noted. Skin: No rashes or lesions noted Patient was informed and verbally consented to the use of an ambient scribe for clinic note documentation during this visit. 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 Current occupational exposures/hazards: Yes Cognitive needs: No Hearing needs: No Vision needs: No Review of Systems Const All systems reviewed & are unremarkable except as noted in HPI and below Physical Exam Vital Signs: Last Vital Signs Temp 98.1 F 04/03/25 16:00 Pulse 70 04/03/25 16:00 BP 104/72 04/03/25 16:00 Pulse Ox 98 04/03/25 16:00 Oxygen Delivery Method Room Air 04/03/25 16:00 BMI result Body Mass Index 29.0 Assessment & Plan Assessment & Plan (1) RLQ abdominal pain: Code(s): R10.31 - Right lower quadrant pain Plan Most likely gas vs constipation vs diverticulitis vs hernia vs torsion, unlikely appy UA was done on 03/19 and it was negative Had labs done from his PCP, LFTs and kidney function was good, and no WBC plan- - offered to repeat labs and urine - diet as tolerated - activities as tolerated - will discuss with PCP about getting an u/s - needs to f/u with PCP - advised the ER for worseing pain, fever, testicular pain, masses, vomiting, etc Coding Level of Care Code Est Pt Level 3 (05233) Diagnoses RLQ abdominal pain R10.31
== END 2025-04-03 17:00 | disposition home or self-care (01) ==
PROVIDERS: PCP Nurse Practitioner Family; Visit Provider Physician Assistant Medical
DX: R10.31 Right lower quadrant pain (principal)

== ENCOUNTER 2025-04-04 14:00 | Outpatient (REF) | payer OTHER, SELFPAY ==
--- NOTE | ~2025-04-04 | US_ITS ---
EXAMINATION: US SCROTUM HISTORY: N50.819 - Testicular pain, unspecified. COMPARISON: There are no prior studies available for comparison. FINDINGS: Real-time grayscale ultrasound imaging of the scrotum was performed. RIGHT TESTICLE: The right testis measures 4.8 x 2.3 x 3.0 cm and demonstrates normal homogeneous echotexture. No masses are seen. The right testis demonstrates normal arterial and venous color Doppler and spectral waveforms. RIGHT EPIDIDYMIS: Normal in size, shape, and vascularity. LEFT TESTICLE: The left testis measures 4.9 x 2.0 x 3.0 cm and demonstrates normal homogeneous echotexture. No masses are seen. The left testis demonstrates normal arterial and venous color Doppler and spectral waveforms. LEFT EPIDIDYMIS: Normal in size, shape, and vascularity. VARICOCELE: None. HYDROCELE: No significant hydrocele is seen. OTHER COMMENTS: None. US/US scrotum IMPRESSION: Unremarkable scrotal ultrasound. Electronically signed by: Marc Alicea MD 04/04/2025 03:13 PM EDT
--- NOTE | ~2025-04-04 | US_ITS ---
EXAMINATION: US ABDOMEN COMPLETE CLINICAL INFORMATION: Abdominal pain.. COMPARISON: None available. TECHNIQUE: Real-time ultrasound of the abdomen using grayscale technique. FINDINGS: PANCREAS: No peripancreatic fluid collections. ABDOMINAL AORTA: The proximal, mid, and distal segments are normal in caliber. INFERIOR VENA CAVA: Visualized portions are normal. LIVER: Liver measures 16 cm per technologist. Normal echotexture. There is a subtle nodular surface. No solid or cystic lesion detected. No intrahepatic biliary ductal dilatation. GALLBLADDER: Fluid-filled. Nondistended. No pericholecystic fluid collection or gallbladder wall thickening. COMMON BILE DUCT: 2 mm. RIGHT KIDNEY: 12 cm. Normal echotexture. Normal renal cortical thickness. No hydronephrosis. No solid or cystic lesion detected. LEFT KIDNEY: 11 cm. Normal echotexture. Normal renal cortical thickness. No hydronephrosis. Multiple, different sizes, exophytic and parapelvic well-defined anechoic lesions without flow on color Doppler interrogation, the largest measures 3.4 cm.. SPLEEN: 12 cm. No focal lesion. FREE FLUID: None. US/US abdomen complete IMPRESSION: Hepatomegaly, mild. Questionable hepatocellular disease. No cholelithiasis or choledocholithiasis. No hydronephrosis. Multifocal simple cyst, left kidney. Splenomegaly, mild versus up to normal limits spleen. No ascites. Electronically signed by: Walter Avila MD 04/04/2025 03:06 PM EDT
--- OUTSIDE RECORDS SUMMARY | 2025-04-04 15:13 | XMS_ITS | Clinical Summary ---
Author Organization [facility] Address [address] [place] [address] Care Team Providers Care Pt Sitter Name Role Phone Pcp, No Primary Care [...] - 19+ 3-dose series) 2001 Influenza Vaccine 02/02/2025 COVID-19 Vaccine (2023-2 5 season) 2025 DTaP/Tdap/Td Vaccines (2 - T d or Tdap) 04/05/2029 04/05/2019 HPV Vaccines (No Doses Required) Completed Pneumococcal Vaccine: Pediat milton (0-5 Years) and At-Risk Patients (6 to 49 Years) Aged Out No longer eligible b ased on patient's age to complete this topic Insurance [facility] [place] [facility] [place] OUT [place] [facility] [place] Care Teams Pt Sitter Relationship Specialty Start Date End Date Pcp, No PCP - General General Medicine 04/05/19
== END 2025-04-04 14:01 | disposition home or self-care (01) ==
LOC: HO.US 14:00
PROVIDERS: Visit Provider Nurse Practitioner Family
DX: N50.819 Testicular pain, unspecified (principal); R10.9 Unspecified abdominal pain
CPT/HCPCS: 76700; 76870

== ENCOUNTER → 2025-04-04 14:05 | Outpatient (BNV) | payer OTHER, SELFPAY | PROVIDERS: Visit Provider Radiology Diagnostic Radiology | DX: R16.2 Hepatomegaly with splenomegaly, not elsewhere classified (principal); N28.1 Cyst of kidney, acquired; N50.819 Testicular pain, unspecified | CPT/HCPCS: 76700; 76870 ==

== ENCOUNTER 2025-04-06 07:55 | Outpatient (REF) | payer OTHER, SELFPAY ==
--- OUTSIDE RECORDS SUMMARY | 2025-04-06 07:58 | XMS_ITS | Clinical Summary ---
Author Organization [facility] Address [address] [place] [address] Care Team Providers Care Cook Helper Name Role Phone Pcp, No Primary Care [...] patient's age to complete this topic Insurance [facility] [place] [employer] [place] [facility] [place] Care Teams Cook Helper Relationship Specialty Start Date End Date Pcp, No PCP - General General Medicine 04/05/19
[2025-04-06 11:12] LABS: Alanine Aminotransferase 37 U/L (0-40); Albumin Level 4.8 g/dL (3.5-5.0); Alkaline Phosphatase 55 U/L (39-117); Anion Gap 6 (12-20); Aspartate Amino Transferase 21 U/L (5-37); Blood Urea Nitrogen 13 mg/dL (9-16); Calcium 9.1 mg/dL (8.4-10.2); Carbon Dioxide 31 mmol/L (22-29); Chloride 106 mmol/L (96-108); Estimated Glomerular Filt Rate > 60; Lipase 22 U/L (8-78); Potassium 4.2 mmol/L (3.3-5.1); Sodium 139 mmol/L (135-145); Total Protein 7.0 g/dL (6.5-8.0)
[2025-04-06 11:21] LABS: HBS Num1 > 1000.00 mIU/mL (0-7.99); HBc Num1 0.05 S/CO (0.00-0.79); HBsAGNum1 0.37 S/CO (0.00-0.99); Hepatitis A Antibody IgM 0.15 Index (0-0.79); Hepatitis B Surface Antigen Negative (Negative); ~HepC Num1 0.06 S/CO (0.00-0.79); ~Hepatitis A Antibody IgM Nonreactive (Nonreactive); ~Hepatitis B Surface Antibody REACTIVE (Nonreactive); ~Hepatitis C Antibody Nonreactive (Nonreactive)
== END 2025-04-06 07:56 | disposition home or self-care (01) ==
LOC: HO.HMGCLDS 07:55
PROVIDERS: PCP Nurse Practitioner Family; Visit Provider Nurse Practitioner Family
DX: Z01.84 Encounter for antibody response examination (principal); K76.89 Other specified diseases of liver; R10.9 Unspecified abdominal pain
CPT/HCPCS: 36415; 80053; 83690; 86015; 86301; 86381; 86704; 86706; 86709; 86803; 87340

== ENCOUNTER 2025-04-12 21:00 | Emergency (ER) | payer OTHER, SELFPAY ==
--- NOTE | ~2025-04-12 | CT_ITS ---
CLINICAL HISTORY: RLQ pain CT abdomen and pelvis with contrast Comparison: None provided Findings: The lung bases are clear. Left parapelvic renal cysts. Gallbladder and solid organs otherwise unremarkable. No urolithiasis. No bowel obstruction, pneumoperitoneum, or pneumatosis. Mesenteric vessels patent. Iliofemoral and inferior vena cava venous systems unremarkable. Normal appendix. Urinary bladder is partially decompressed and mildly thick-walled as result. No ascites or hernia. The bones are intact. IMPRESSION: No acute findings. This document has been electronically signed by: Jerel Villar MD on 04/13/2025 01:15:01
[2025-04-12 21:04] VITALS: BP 145/86; PULSE 107; RESP 20; TEMP 37.7; O2SAT 98; BMI 28.7
[2025-04-12 21:44] LABS: MANUAL DIFF FLAG NO
--- OUTSIDE RECORDS SUMMARY | 2025-04-12 21:44 | XMS_ITS | Clinical Summary ---
Author Organization [facility] Address [address] [place] [address] Care Team Providers Care Developer Advocate Name Role Phone Pcp, No Primary Care [...] patient's age to complete this topic Insurance [facility] [place] [facility] MED[place]ID OUT OF STATE [facility] Care Teams Developer Advocate Relationship Specialty Start Date End Date Pcp, No PCP - General General Medicine 04/05/19
[2025-04-12 21:45] LABS: Hematocrit 43.2 % (42.0-52.0); Hemoglobin 14.6 g/dl (14.0-18.0); Imm Gran Abs Auto 0.01 X10*3/uL (0.00-0.03); Imm Gran Pct Auto 0.2 % (0.0-0.4); Lymphocytes Absolute Auto 0.8 X10*3/uL (1.2-4.9); Mean Corpuscular HGB Conc 33.8 g/dl (31.0-36.0); Mean Corpuscular Hemoglobin 31.3 pg (27.0-33.0); Mean Corpuscular Volume 92.7 fL (80.0-98.0); NRBC Abs Auto 0.000 X10*3/uL (0.0-0.012); NRBC Pct Auto 0.0 /100WBC (0.0-0.2); Platelet Count 209 X10*3/uL (160-400); Red Blood Count 4.66 X10*6/uL (4.60-5.80); White Blood Count 5.8 X10*3/uL (4.8-10.8)
[2025-04-12 22:00] LABS: Alanine Aminotransferase 41 U/L (0-40); Albumin Level 4.7 g/dL (3.5-5.0); Alkaline Phosphatase 63 U/L (39-117); Anion Gap 12 (12-20); Aspartate Amino Transferase 27 U/L (5-37); Blood Urea Nitrogen 12 mg/dL (9-16); Calcium 9.1 mg/dL (8.4-10.2); Carbon Dioxide 26 mmol/L (22-29); Chloride 106 mmol/L (96-108); Creatinine Clr Calc Pharmacy 85.6; Estimated Glomerular Filt Rate 58; Lipase 20 U/L (8-78); Potassium 4.0 mmol/L (3.3-5.1); Sodium 140 mmol/L (135-145); Total Protein 7.1 g/dL (6.5-8.0)
[2025-04-12 22:09] LABS: COVID-19 Test Negative (Negative); IDNOW Serial# 55D5AD1C
[2025-04-12 22:24] LABS: IDNOW Serial# 58CA691E; Influenza B2 Negative (Negative)
--- NOTE | 2025-04-13 00:07 | ED_ITS ---
HPI - General Adult General Chief complaint: Abdominal Pain Stated complaint: pain in lower abd quad, chills (? appendicitis) Time Seen by Provider: 04/12/25 22:17 Source: patient, RN notes reviewed and old records reviewed Mode of arrival: ambulatory Limitations: no limitations History of Present Illness ED Provider: Oswald CUMMINGS narrative: 44-year-old male presents for evaluation of abdominal pain and fever. He reports he has had right lower abdominal pain for about 1 month. He has seen his primary doctor and was referred for an abdominal ultrasound and including his kidneys, liver, gallbladder and he also had a scrotal ultrasound. Reports all this was unremarkable and did not explain his pain. He denies any history of abdominal surgeries. She presents to ER today due to a new onset of fever with chills maximum he reports a T-max excise 101 He also developed nausea today. Denies any cough, shortness of breath rashes No other complaints or concerns at this time Related Data Home Medications ?Medication ?Instructions ?Recorded ?Confirmed famotidine 20 mg tablet (Pepcid AC) 20 mg PO DAILY PRN heart burn 09/02/22 10/09/24 Allergies Allergy/AdvReac Type Severity Reaction Status Date / Time No Known Allergies Allergy Verified 04/12/25 21:08 Review of Systems 2 Constitutional: Constitutional: Reports body ache(s), Reports chills, Reports fever(s) and Denies headache(s) Eyes: Eyes: Denies blurry vision ENT: Denies dizziness and Denies headache(s) Cardiovascular: Cardiovascular: Denies chest pain and Denies dyspnea on exertion Respiratory: Respiratory: Denies cough and Denies dyspnea on exertion Gastrointestinal: Gastrointestinal: Reports abdominal pain, Denies melena, Denies hematochezia, Reports nausea and Denies vomiting Musculoskeletal: Musculoskeletal: Denies back pain Integumentary/Breasts: Skin/Breast: Denies rash Neurologic: Denies dizziness and Denies headache(s) Psychiatric: Psychiatric: Denies anxiety PMFSH Past Medical History Surgical History No pertinent past surgical history Family History Family History Father Substance use disorder Social History Social History Household Members: Family Housing: House Alcohol intake: current Alcohol intake frequency: a few times a week Patient Tobacco Use Status: Never used Tobacco Smoked in Last 30 Days: No e-Cigarette/Vaping Use: Never Used Second Hand Smoke Exposure: No Use of substances other than those prescribed or required for medical reasons: Yes Substance Use Type: Marijuana Advance Directives: No Advance Directives Information Provided: No Do you have a plan to hurt others: No Plan service: No Current occupational status: employed 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 Current occupational exposures/hazards: Yes Cognitive needs: No Hearing needs: No Vision needs: No Physical Exam ED Vital Signs: Vital Signs - 24 hr 04/12/25 21:04 Temperature 99.8 F Pulse Rate 107 H Respiratory Rate 20 Blood Pressure 145/86 H Pulse Oximetry 98 Oxygen Delivery Method Room Air BMI result Body Mass Index 28.7 Const General: healthy appearing, comfortable, no acute distress, alert and awake Nutritional Appearance: well nourished Orientation/consciousness: patient oriented x3 HENMT Head: Yes normocephalic and Yes atraumatic Throat: Yes posterior oropharynx normal Eyes Eyelids: Yes eyelids normal Conjunctivae: conjunctivae normal Sclerae: sclerae normal Corneas: corneas normal Pupils: Equal, round and reactive pupils present EOM: EOMs intact bilaterally Neck Neck: Yes full ROM Resp Effort & Inspection: normal respiratory effort, able to speak in complete sentences, no audible wheezes and not labored Auscultation: clear to auscultation bilaterally Cardio Rate: regular rate Rhythm: regular rhythm GI Inspection: No distended Palpation (GI): Soft to palpation, not firm, Tenderness to palpation present (GI) in the RLQ; not in the LLQ, not in the LUQ and not in the RUQ, no guarding and not rigid Skin General skin exam: elasticity normal Neuro General: patient oriented x3 Cranial nerves: Yes Equal, round and reactive pupils present and Yes Bilaterally intact EOM present Cognition (Neuro): normal cognition Extrem Other: Moving all extremities well without any obvious deformities Course Reevaluation(s) Reevaluation #1: Patient's CT scan does not show any acute concerning findings. Urinalysis was not sent but the patient reports having had 2 urinalysis in the last week for similar complaints. These are both unremarkable. We will discharge the patient to follow up with GI given his chronic abdominal pain over the last month and he will continue to treat in his symptoms conservatively Time: 01:23 Medical Decision Making Medical Decision Making [facility] Narrative: 44-year-old male presents for evaluation of abdominal pain with new onset of fever and nausea. On exam he does have some right lower quadrant tenderness without rebound or guarding. His abdomen is nondistended. His labs are reassuring. He does not have any leukocytosis, he does have a bit of a left shift with a neutrophil percentage of 76.3. Chemistries without any concerning abnormalities. We will obtain a urinalysis in his CT scan of the abdomen pelvis. Differential Diagnosis Differential Diagnoses: The differential diagnosis associated with the presentation includes Acute appendicitis Folic appendagitis Epididymitis Constipation Colitis Diverticulitis Biliary disease Obstructive uropathy UTI Lab Data [facility] Lab Attestation statement: I reviewed the patient's lab results. As above 04/12/25 21:40 04/12/25 21:40 Labs: Lab Results 04/12/25 Range/Units 21:40 WBC 5.8 (4.8-10.8) X10*3/uL RBC 4.66 (4.60-5.80) X10*6/uL Hgb 14.6 (14.0-18.0) g/dl Hct 43.2 (42.0-52.0) % MCV 92.7 (80.0-98.0) fL MCH 31.3 (27.0-33.0) pg MCHC 33.8 (31.0-36.0) g/dl RDW 11.9 (11.0-16.0) % Plt Count 209 (160-400) X10*3/uL MPV 9.6 (9.4-12.4) fL Immature Gran % (Auto) 0.2 (0.0-0.4) % Neut % (Auto) 76.3 H (45-73) % Lymph % (Auto) 13.6 L (20-40) % [place] % (Auto) 8.2 (2-11) % Eos % (Auto) 1.4 (0-4) % Baso % (Auto) 0.3 (0-2) % Lymph # (Auto) 0.8 L (1.2-4.9) X10*3/uL [place] # (Auto) 0.5 (0.1-1.2) X10*3/uL Eos # (Auto) 0.1 (0.0-0.4) X10*3/uL Baso # (Auto) 0.0 (0.0-0.2) X10*3/uL Abs Immat Gran (auto) 0.01 (0.00-0.03) X10*3/uL Absolute Neuts (auto) 4.5 (2.0-8.3) x10*3/uL Absolute Nucleated RBC 0.000 (0.0-0.012) X10*3/uL Nucleated RBC % (auto) 0.0 (0.0-0.2) /100WBC Sodium 140 (135-145) mmol/L Potassium 4.0 (3.3-5.1) mmol/L Chloride 106 (96-108) mmol/L Carbon Dioxide 26 (22-29) mmol/L Anion Gap 12 (12-20) BUN 12 (9-16) mg/dL Creatinine 1.35 (0.5-1.4) mg/dL Estim Creat Clear Calc 85.6 Estimated GFR 58 Random Glucose 107 (60-115) mg/dL Calcium 9.1 (8.4-10.2) mg/dL Total Bilirubin 0.4 (0.0-1.0) mg/dL Direct Bilirubin 0.1 (0.0-0.5) mg/dL AST 27 (5-37) U/L ALT 41 H (0-40) U/L Alkaline Phosphatase 63 (39-117) U/L Total Protein 7.1 (6.5-8.0) g/dL Albumin 4.7 (3.5-5.0) g/dL Lipase 20 (8-78) U/L COVID-19 (HARDIK) Negative (Negative) COVID-19 Clin Com See Note Influenza Type A (CARITO) Negative (Negative) Influenza Type B (CARITO) Negative (Negative) Influenza A & B Note See Note Radiology Impression Discussion of test interpretation with radiology: I have reviewed the radiologist's reading. Radiologist Impression: Findings: The lung bases are clear. Left parapelvic renal cysts. Gallbladder and solid organs otherwise unremarkable. No urolithiasis. No bowel obstruction, pneumoperitoneum, or pneumatosis. Mesenteric vessels patent. Iliofemoral and inferior vena cava venous systems unremarkable. Normal appendix. Urinary bladder is partially decompressed and mildly thick-walled as result. No ascites or hernia. The bones are intact. IMPRESSION: No acute findings. This document has been electronically signed by: Jerel Villar MD on 04/13/2025 01:15:01 Discharge Plan Discharge Clinical Impression: Abdominal pain Patient Disposition: Home, Self-Care Instructions: Abdominal Pain (ED) Additional Instructions: Your CT scan did not show any concerning findings to explain your symptoms. You did not have appendicitis. Your labs are reassuring. You were fever may be related to a viral infection. Continue use ibuprofen/Tylenol for any further fevers pain Return for new or worsening symptoms. You may follow up with GI given your abdominal pain over the last month Prescriptions: No Action famotidine [Pepcid AC] 20 mg tablet 20 mg PO DAILY PRN (Reason: heart burn) Referrals: [facility] [place] Services [Provider Group, Gastroenterology] Referral Note: abdominal pain for one month Print Language: Bermudian
[2025-04-13 01:37] VITALS: BP 145/86; PULSE 98; RESP 20; TEMP 37.7; O2SAT 98
== END 2025-04-13 01:38 | disposition home or self-care (01) ==
PROVIDERS: Emergency Provider Emergency Medicine; PCP Nurse Practitioner Family
DX: R10.31 Right lower quadrant pain (principal); R50.9 Fever, unspecified
CPT/HCPCS: 74177; 80048; 80076; 83690; 85025; 87502; 87635; 99284; 99285

== ENCOUNTER → 2025-04-12 23:05 | Outpatient (BNV) | payer OTHER, SELFPAY | PROVIDERS: Emergency Provider Emergency Medicine; PCP Nurse Practitioner Family; Visit Provider Radiology Diagnostic Radiology | DX: R10.32 Left lower quadrant pain (principal); N28.1 Cyst of kidney, acquired | CPT/HCPCS: 74177 ==

== ENCOUNTER 2025-04-24 12:57 | Outpatient (REF) | payer OTHER, SELFPAY ==
--- NOTE | ~2025-04-24 | XR_ITS ---
EXAMINATION: XR LUMBOSACRAL SPINE CLINICAL INFORMATION: M54.50 - Low back pain, unspecified COMPARISON: Correlated to CT abdomen pelvis dated April 12, 2025 TECHNIQUE: AP and lateral views. FINDINGS: Small marginal osteophyte formation and endplate sclerosis at L5-S1, L3-4, L4-5-3 and L1-2. Schmorl node in the anterior superior endplate L2. No acute cortical disruption or malalignment. No lytic or blastic lesions. XR/XR lumbar spine 2-3V IMPRESSION: Multilevel thoracolumbar spondylosis, mild. Electronically signed by: Walter Avila MD 04/24/2025 01:24 PM EDT
[2025-04-24 16:11] LABS: MANUAL DIFF FLAG NO
[2025-04-24 16:23] LABS: Hematocrit 40.9 % (42.0-52.0); Hemoglobin 14.0 g/dl (14.0-18.0); Imm Gran Abs Auto 0.01 X10*3/uL (0.00-0.03); Imm Gran Pct Auto 0.2 % (0.0-0.4); Lymphocytes Absolute Auto 1.1 X10*3/uL (1.2-4.9); Mean Corpuscular HGB Conc 34.2 g/dl (31.0-36.0); Mean Corpuscular Hemoglobin 31.6 pg (27.0-33.0); Mean Corpuscular Volume 92.3 fL (80.0-98.0); NRBC Abs Auto 0.000 X10*3/uL (0.0-0.012); NRBC Pct Auto 0.0 /100WBC (0.0-0.2); Platelet Count 273 X10*3/uL (160-400); Red Blood Count 4.43 X10*6/uL (4.60-5.80); White Blood Count 4.2 X10*3/uL (4.8-10.8)
--- OUTSIDE RECORDS SUMMARY | 2025-04-24 16:33 | XMS_ITS | Clinical Summary ---
Author Organization [facility] Address [address] [place] [address] Care Team Providers Care Segmental Paving Supervisor Name Role Phone Pcp, No Primary Care [...] patient's age to complete this topic Insurance [facility] [place] [facility] [place] [facility] [place] Care Teams Segmental Paving Supervisor Relationship Specialty Start Date End Date Pcp, No PCP - General General Medicine 04/05/19
[2025-04-24 17:00] LABS: Alanine Aminotransferase 36 U/L (0-40); Albumin Level 4.7 g/dL (3.5-5.0); Alkaline Phosphatase 59 U/L (39-117); Anion Gap 9 (12-20); Aspartate Amino Transferase 22 U/L (5-37); Blood Urea Nitrogen 11 mg/dL (9-16); Calcium 9.0 mg/dL (8.4-10.2); Carbon Dioxide 29 mmol/L (22-29); Chloride 106 mmol/L (96-108); Estimated Glomerular Filt Rate > 60; Lipase 22 U/L (8-78); Potassium 4.0 mmol/L (3.3-5.1); Sodium 140 mmol/L (135-145); Total Protein 7.0 g/dL (6.5-8.0)
[2025-04-25 03:55] LABS: HBS Num1 > 1000.00 mIU/mL (0-7.99); HBc Num1 0.05 S/CO (0.00-0.79); HBsAGNum1 0.38 S/CO (0.00-0.99); Hepatitis A Antibody IgM 0.15 Index (0-0.79); Hepatitis B Surface Antigen Negative (Negative); ~HepC Num1 0.06 S/CO (0.00-0.79); ~Hepatitis A Antibody IgM Nonreactive (Nonreactive); ~Hepatitis B Surface Antibody REACTIVE (Nonreactive); ~Hepatitis C Antibody Nonreactive (Nonreactive)
== END 2025-04-24 12:58 | disposition home or self-care (01) ==
LOC: HO.HMGCX 12:57
PROVIDERS: PCP Nurse Practitioner Family; Visit Provider Nurse Practitioner Family
DX: M54.50 Low back pain, unspecified (principal); R10.9 Unspecified abdominal pain; Z79.899 Other long term (current) drug therapy
CPT/HCPCS: 36415; 72100; 80053; 83690; 85025; 86015; 86301; 86381; 86704; 86706; 86709; 86803; 87340

== ENCOUNTER → 2025-04-24 13:09 | Outpatient (BNV) | payer OTHER, SELFPAY | PROVIDERS: PCP Nurse Practitioner Family; Visit Provider Radiology Diagnostic Radiology | DX: M47.815 Spondylosis without myelopathy or radiculopathy, thoracolumbar region (principal) | CPT/HCPCS: 72100 ==

== ENCOUNTER → 2025-04-24 13:53 | Outpatient (AMB) | payer OTHER, SELFPAY ==
--- OUTSIDE RECORDS SUMMARY | 2025-04-23 06:51 | XMS_ITS | Clinical Summary ---
Author Organization [facility] Address [address] [place] [address] Care Team Providers Care Dinkey Locomotive Operator Name Role Phone Pcp, No Primary Care [...] patient's age to complete this topic Insurance [facility] MED[facility] OUT OF STATE [facility] Care Teams Dinkey Locomotive Operator Relationship Specialty Start Date End Date Pcp, No PCP - General General Medicine 04/05/19
--- NOTE | 2025-04-24 13:54 | MHC.PC.OV ---
Intake Visit Reasons: ED follow up/needs GI referral Allergies No Known Allergies Allergy (Verified 04/12/25 21:08) Medication List - Last Reconciled 04/23/25 by NESS Hendrickson famotidine (Pepcid AC) 20 mg PO DAILY PRN Tobacco use date assessed: 10/09/24 Dental Screening Dental Screen Date: 10/09/24 HPI ED follow up/needs GI referral HPI Details History of Present Illness The patient is a 44-year-old male presenting with abdominal discomfort. The discomfort is primarily located in the right lower quadrant and occasionally radiates to the back. He denies any fever, chills, nausea, vomiting, or changes in bowel habits, although he reports intermittent loose stools. The patient has a history of degenerative disc disease, which may contribute to his back pain. A recent CT scan was negative for any acute findings, and he denies any bulging in the groin region. He reports that his stomach can become loud at times, but this does not cause him any distress. The patient is concerned about the possibility of irritable bowel syndrome (IBS) due to his symptoms, although he does not experience significant diarrhea. Review of Systems - Gastrointestinal: Reports intermittent abdominal discomfort and loose stools. Denies nausea, vomiting, or significant diarrhea. - Musculoskeletal: Reports history of degenerative disc disease. - General: Denies fever or chills. - Genitourinary: Denies bulging in the groin region. Plan 1. Abdominal Discomfort The patient will undergo further laboratory testing to investigate the cause of his abdominal discomfort. A referral to gastroenterology has been placed for further evaluation. 2. Degenerative Disc Disease An x-ray of the lumbar spine will be obtained to assess any changes related to his degenerative disc disease. 3. Possible Irritable Bowel Syndrome (Ibs) The patient is advised to monitor his symptoms and dietary triggers, and further evaluation by gastroenterology will be conducted to confirm the diagnosis. Discussion Notes I discussed with the patient the plan to conduct further laboratory tests and obtain an x-ray of the lumbar spine to evaluate his symptoms. I also placed a referral to gastroenterology for a more comprehensive evaluation of his abdominal discomfort and possible IBS. The patient was advised to return to the ER if symptoms worsen significantly and to keep me informed of any changes. Patient Instructions - Follow up with gastroenterology as scheduled. - Monitor symptoms and dietary triggers for any patterns. - Return to the ER if symptoms worsen significantly. 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 Current occupational exposures/hazards: Yes Cognitive needs: No Hearing needs: No Vision needs: No Questionnaire Thrive Questionnaire Date Thrive assessed: 10/09/24 I am a: Patient What is your living situation today?: I have a steady place to live Within the past 12 months, did the food you bought not last and you didn't have the money to get more?: Never true Within the past 12 months, did you worry whether your food would run out before you got money to buy more?: Never true Do you have trouble paying for medicines?: No Do you have trouble getting transportation to medical appointments?: No Do you have trouble paying your heating and electricity bill?: No Do you have trouble taking care of your child, family member or friend?: No Do you have trouble with day-to-day activities such as bathing, preparing meals, shopping, managing finances, etc.?: No Are you currently unemployed and looking for a job?: No Are you interested in more education?: No Please select the resources that you would like help with: None Currently or been in a relationship where the following occur: No concerns reported THRIVE Score: 0 TYLER-7 AMB Questionnaire TYLER-7 Date TYLER - 7 assessed: 10/09/24 Source: Developed by Drs. Marc Rudd, Rukhsana Perez, Kavon Erickson and colleagues, with an educational roger from [employer]. Physical exam (Primary Care) Tobacco/Smoking Status: Tobacco use Status Tobacco use date assessed 10/09/24 10/09/24 10:16 Patient Tobacco Use Status Never used Tobacco 04/03/25 16:00 e-Cigarette/Vaping Use Never Used 10/09/24 10:16 Thrive Assessment: Date of Thrive Assessment Date Thrive assessed 10/09/24 10/09/24 10:16 Currently or been in a relationship where the following occur: No concerns reported Telehealth Telehealth Telehealth Platform: VCharge Location of provider rendering services: practice address Location of patient: address on file Patient Identification confirmed using: Name, : Yes Telehealth method: video Patient verbally consented to treatment: Yes Patient verbally consented to billing insurance company: Yes Patient informed of any privacy concerns related to visit: Yes Minutes spent on Phone/Video with Pt.: 13 Coding Level of Care Code Tele Est Pt Level 3 (91983) Diagnoses Abdominal pain R10.9 Lower back pain M54.50 Assessment & Plan Assessment & Plan (1) Abdominal pain: Code(s): R10.9 - Unspecified abdominal pain Category: Medical (2) Lower back pain: Code(s): M54.50 - Low back pain, unspecified Category: Medical Plan . Orders: Orders Comprehensive Met. Panel Today M54.50 - Low back pain, unspecified, R10.9 - Unspecified abdominal pain Mitochondrial Antibody Today M54.50 - Low back pain, unspecified, R10.9 - Unspecified abdominal pain Smooth Muscle Antibody Today M54.50 - Low back pain, unspecified, R10.9 - Unspecified abdominal pain Complete Blood Count Auto Diff Today M54.50 - Low back pain, unspecified, R10.9 - Unspecified abdominal pain XR lumbar spine 2-3V Today M54.50 - Low back pain, unspecified, R10.9 - Unspecified abdominal pain Lipase Today M54.50 - Low back pain, unspecified, R10.9 - Unspecified abdominal pain Carbohydrate Antigen 19-9 Today M54.50 - Low back pain, unspecified, R10.9 - Unspecified abdominal pain Hepatitis A,B,C Profile Today M54.50 - Low back pain, unspecified, R10.9 - Unspecified abdominal pain Referrals Gastroenterology Referral R10.9 - Unspecified abdominal pain
== END ==
PROVIDERS: PCP Nurse Practitioner Family; Visit Provider Nurse Practitioner Family
DX: R10.9 Unspecified abdominal pain (principal); M54.50 Low back pain, unspecified